=== PATIENT | male | born 1965 | race Caucasian/White ===

== ENCOUNTER → 2016-09-05 | Outpatient (CLI) | payer BC ==
[~2016-09-05] MED LIST: ACTOPLUS MET 501 TAB PO; BYDUREON P2 MG/0.65 SQ; CLEOCIN HCL150 M1 PO; EFFIENT10 MG PO; INVOKANA100 MG PO; LIPITOR 40MG TA40 MG PO; VIBRAMYCIN HYC100 MG PO
== END ==
LOC: LAB 07:53
DX: E11.65 Type 2 diabetes mellitus with hyperglycemia (principal); Z79.4 Long term (current) use of insulin

== ENCOUNTER → 2016-12-09 | Outpatient (CLI) | payer BC ==
[2015-05-06 21:19] VITALS: BP 133/96
== END ==
LOC: LAB 07:39
DX: E11.59 Type 2 diabetes mellitus with other circulatory complications (principal)

== ENCOUNTER → 2017-03-16 | Outpatient (CLI) | payer BC ==
[2015-05-06 21:19] VITALS: BP 133/96
== END ==
LOC: LAB 14:06
DX: E11.59 Type 2 diabetes mellitus with other circulatory complications (principal)

== ENCOUNTER → 2017-03-17 | Outpatient (CLI) | payer BC ==
[2015-05-06 21:19] VITALS: BP 133/96
== END ==
LOC: LAB 11:07
DX: E11.59 Type 2 diabetes mellitus with other circulatory complications (principal)

== ENCOUNTER → 2017-05-15 | Outpatient (CLI) | payer BC ==
[2015-05-06 21:19] VITALS: BP 133/96
== END ==
LOC: LAB 08:13
DX: Z00.00 Encounter for general adult medical examination without abnormal findings (principal); Z12.5 Encounter for screening for malignant neoplasm of prostate

== ENCOUNTER → 2017-06-23 | Outpatient (CLI) | payer BC ==
[2015-05-06 21:19] VITALS: BP 133/96
[2017-06-23 23:58] LABS: FOLLICLE STIMULATING HORMONE 20.9 mIU/mL (1.0-12.0); LUTENIZING HORMONE 12.7 mIU/mL (0.6-12.1)
== END ==
LOC: LAB 11:23
PROVIDERS: Physician Assistant
DX: E23.0 Hypopituitarism (principal)

== ENCOUNTER → 2017-09-18 | Outpatient (CLI) | payer BC ==
[2015-05-06 21:19] VITALS: BP 133/96
== END ==
LOC: LAB 08:31
DX: E11.9 Type 2 diabetes mellitus without complications (principal); Z88.0 Allergy status to penicillin

== ENCOUNTER → 2017-12-21 | Outpatient (CLI) | payer BC ==
[2015-05-06 21:19] VITALS: BP 133/96
[2017-12-21 07:48] LABS: BUN/CREATININE RATIO 17.8 (6.0-26.0); CALCIUM 8.7 mg/dL (8.4-10.2); POTASSIUM 4.2 mmol/L (3.6-5.0); TOTAL BILIRUBIN 0.3 mg/dL (0.2-1.3); TOTAL PROTEIN 7.4 g/dL (6.3-8.2)
[2017-12-21 14:58] LABS: CREATININE OTHER SOURCE 74 mg/dL (())
== END ==
LOC: LAB 06:51
PROVIDERS: Physician Assistant
DX: E11.65 Type 2 diabetes mellitus with hyperglycemia (principal); E11.59 Type 2 diabetes mellitus with other circulatory complications; E78.01 Familial hypercholesterolemia

== ENCOUNTER 2018-07-16 17:58 | Emergency (ER) | payer BC ==
[~2018-07-16] VITALS: Ht 165.1 cm; Wt 82.7 kg
[~2018-07-16 17:58] MED LIST changes: -CLOPIDOGREL PO; -GLUCOPHAGE PO; -INVOKANA300 MG PO; -LIPITOR 10M10 MG/TAB PO
[2018-07-16 18:38] LABS: EOS # 0.3 (0.04-0.40); EOS % 2.9 % (0.0-4.0); HEMATOCRIT 46.9 % (42.0-52.0); LYMPH# 2.1 (1.50-4.00); MEAN CELL VOLUME 92 fl (78-100); MEAN CORPUSCULAR HEMOGLOBIN 31 pg (27-31); MEAN CORPUSCULAR HGB CONC 34 g/dL (33-37); MEAN PLATELET VOLUME 9.6 fl (7.4-10.4); MONO # 0.9 (0.20-0.80); NEU # 5.2 (1.40-6.50); PLATELET COUNT 268 K/mm3 (130-400); RED BLOOD COUNT 5.09 M/mm3 (4.20-5.60); WHITE BLOOD COUNT 8.5 K/mm3 (4.8-10.8)
[2018-07-16] MEDS ORDERED: INVOKANA300 MG PO (18:38)
[2018-07-16] MEDS ORDERED: GLUCOPHAGE PO (18:39)
[2018-07-16] MEDS ORDERED: LIPITOR 10M10 MG/TAB PO (18:40)
[2018-07-16 18:52] LABS: ALBUMIN 4.5 g/dL (3.5-5.0); CALCIUM 9.5 mg/dL (8.4-10.2); POTASSIUM 4.3 mmol/L (3.6-5.0); TOTAL BILIRUBIN 0.5 mg/dL (0.2-1.3); TOTAL PROTEIN 7.4 g/dL (6.3-8.2)
[2018-07-16 19:14] LABS: URINE APPEARANCE CLEAR; URINE BILIRUBIN NEGATIVE (NEGATIVE); URINE BLOOD NEGATIVE (NEGATIVE); URINE COLOR YELLOW; URINE KETONE NEGATIVE (NEGATIVE); URINE LEUKOCYTE ESTERASE NEGATIVE (NEGATIVE); URINE NITRATE NEGATIVE (NEGATIVE); URINE PROTEIN(semi-quant) NEGATIVE (NEGATIVE); URINE UROBILINOGEN NORMAL (NORMAL); URINE WBC 0-1 /hpf (0-3)
[2018-07-16] MEDS ORDERED: COZAAR25 M1 PO (20:07)
[2018-07-16] MEDS ORDERED: CLOPIDOGREL PO (20:07)
[2018-07-16 20:22] VITALS: BP 131/83
== END 2018-07-16 20:25 | disposition home or self-care (01) ==
LOC: ED 17:58
PROVIDERS: Family Medicine
DX: R07.89 Other chest pain (principal); I25.118 Atherosclerotic heart disease of native coronary artery with other forms of angina pectoris; I10 Essential (primary) hypertension; E11.9 Type 2 diabetes mellitus without complications; Z79.84 Long term (current) use of oral hypoglycemic drugs; Z79.02 Long term (current) use of antithrombotics/antiplatelets; E78.5 Hyperlipidemia, unspecified; Z95.5 Presence of coronary angioplasty implant and graft; G47.30 Sleep apnea, unspecified; Z91.14 Patient's other noncompliance with medication regimen; Z79.899 Other long term (current) drug therapy

== ENCOUNTER → 2018-07-16 | Outpatient (CLI) | payer BC ==
[~2018-07-16] VITALS: Ht 165.1 cm; Wt 82.8 kg
[~2018-07-16] MED LIST changes: +CLOPIDOGREL PO; +COZAAR25 M1 PO; +GLUCOPHAGE PO; +INVOKANA300 MG PO; +LIPITOR 10M10 MG/TAB PO; +PIOGLITAZONE HY PO; +TRULICITY0.75 MG/0. SC
[2018-07-16 11:30] VITALS: BP 142/91
[2018-07-16 11:46] LABS: EOS # 0.2 (0.04-0.40); EOS % 2.1 % (0.0-4.0); HEMATOCRIT 48.5 % (42.0-52.0); HEMOGLOBIN 16.4 g/dL (13.5-18.0); LYMPH# 1.9 (1.50-4.00); MEAN CELL VOLUME 92 fl (78-100); MEAN CORPUSCULAR HEMOGLOBIN 31 pg (27-31); MEAN CORPUSCULAR HGB CONC 34 g/dL (33-37); MEAN PLATELET VOLUME 9.3 fl (7.4-10.4); MONO # 0.9 (0.20-0.80); NEU # 5.4 (1.40-6.50); PLATELET COUNT 272 K/mm3 (130-400); RED BLOOD COUNT 5.29 M/mm3 (4.20-5.60); RED CELL DISTRIBUTION WIDTH 12.7 % (11.5-14.5); WHITE BLOOD COUNT 8.4 K/mm3 (4.8-10.8)
[2018-07-16 12:06] LABS: ALBUMIN 4.7 g/dL (3.5-5.0); CALCIUM 9.6 mg/dL (8.4-10.2); POTASSIUM 4.9 mmol/L (3.6-5.0); TOTAL BILIRUBIN 0.8 mg/dL (0.2-1.3); TOTAL PROTEIN 7.8 g/dL (6.3-8.2)
[2018-07-16 12:41] LABS: URINE APPEARANCE CLEAR; URINE COLOR YELLOW
[2018-07-16 12:42] LABS: URINE BILIRUBIN NEGATIVE (NEGATIVE); URINE BLOOD NEGATIVE (NEGATIVE); URINE KETONE NEGATIVE (NEGATIVE); URINE LEUKOCYTE ESTERASE NEGATIVE (NEGATIVE); URINE NITRATE NEGATIVE (NEGATIVE); URINE PROTEIN(semi-quant) TRACE mg/dL (NEGATIVE); URINE UROBILINOGEN NORMAL (NORMAL); URINE WBC 0-1 /hpf (0-3)
[2018-07-16 14:44] LABS: ERYTHROCYTE SEDIMENTATION RATE 2 mm/hr (0-20)
== END ==
LOC: LAB 11:11 → RAD 11:11
PROVIDERS: Internal Medicine
DX: Z01.818 Encounter for other preprocedural examination (principal); R06.02 Shortness of breath; I25.10 Atherosclerotic heart disease of native coronary artery without angina pectoris; R07.89 Other chest pain; Z12.5 Encounter for screening for malignant neoplasm of prostate; Z00.00 Encounter for general adult medical examination without abnormal findings; E11.9 Type 2 diabetes mellitus without complications

== ENCOUNTER → 2018-07-19 | Outpatient (CLI) | payer BC ==
[2018-07-16 20:22] VITALS: BP 131/83
[~2018-07-19] MED LIST changes: +CLOPIDOGREL PO; +GLUCOPHAGE PO; +INVOKANA300 MG PO; +LIPITOR 10M10 MG/TAB PO
== END ==
LOC: CARDREHAB 11:10 → CARDLAB 16:15
DX: R94.39 Abnormal result of other cardiovascular function study (principal); R07.9 Chest pain, unspecified

== ENCOUNTER 2018-08-11 12:48 | Outpatient (RCR) | payer BC | END 2018-11-09 | disposition still patient (30) | LOC: CARDREHAB | DX: Z48.812 Encounter for surgical aftercare following surgery on the circulatory system (principal); Z95.1 Presence of aortocoronary bypass graft ==

== ENCOUNTER → 2018-10-30 | Outpatient (CLI) | payer BC | LOC: LAB 11:06 | DX: E11.59 Type 2 diabetes mellitus with other circulatory complications (principal) ==

== ENCOUNTER 2019-01-07 22:24 | Emergency (ER) | payer BC ==
[~2019-01-07] VITALS: Ht 165.1 cm; Wt 77.3 kg
[2019-01-07] MEDS ORDERED: METFORMIN ER500 MG (22:48)
[2019-01-07] MEDS ORDERED: LIPITOR 10M10 MG/TAB (22:48)
[2019-01-07] MEDS ORDERED: AMARYL1 M1 (22:48)
[2019-01-07] MEDS ORDERED: INVOKANA100 MG (22:48)
[2019-01-07] MEDS ORDERED: TOPROL XL 25MG25 MG (22:48)
[2019-01-07] MEDS ORDERED: NITROSTAT0.3 MG SL (22:49)
[2019-01-07] MEDS ORDERED: TRULICITY0.75 MG/0. (22:49)
[2019-01-07] MEDS ORDERED: ASPIRIN 81M81 MG/TA2 PO (22:49)
[2019-01-07 23:03] LABS: EOS # 0.3 (0.04-0.40); EOS % 3.6 % (0.0-4.0); HEMATOCRIT 43.4 % (42.0-52.0); HEMOGLOBIN 14.4 g/dL (13.5-18.0); LYMPH# 2.9 (1.50-4.00); MEAN CELL VOLUME 90 fl (78-100); MEAN CORPUSCULAR HEMOGLOBIN 30 pg (27-31); MEAN CORPUSCULAR HGB CONC 33 g/dL (33-37); MEAN PLATELET VOLUME 9.3 fl (7.4-10.4); NEU # 4.3 (1.40-6.50); PLATELET COUNT 271 K/mm3 (130-400); RED BLOOD COUNT 4.85 M/mm3 (4.20-5.60); RED CELL DISTRIBUTION WIDTH 14.4 % (11.5-14.5); WHITE BLOOD COUNT 8.6 K/mm3 (4.8-10.8)
[2019-01-07 23:20] LABS: ALBUMIN 3.9 g/dL (3.5-5.0); CALCIUM 9.1 mg/dL (8.3-10.5); POTASSIUM 4.1 mmol/L (3.5-5.1); TOTAL BILIRUBIN 0.4 mg/dL (0.2-1.2); TOTAL PROTEIN 6.7 g/dL (6.4-8.3)
[2019-01-07 23:50] LABS: PARTIAL THROMBOPLASTIN TIME 23.7 SECONDS (21.0-32.0); PROTHROMBIN TIME 9.5 SECONDS (9.0-12.0)
[2019-01-07 23:52] LABS: URINE APPEARANCE CLEAR; URINE BILIRUBIN NEGATIVE (NEGATIVE); URINE COLOR YELLOW; URINE KETONE NEGATIVE (NEGATIVE); URINE NITRATE NEGATIVE (NEGATIVE); URINE PROTEIN(semi-quant) NEGATIVE (NEGATIVE); URINE UROBILINOGEN NORMAL (NORMAL)
[2019-01-07 23:53] LABS: URINE BLOOD NEGATIVE (NEGATIVE); URINE LEUKOCYTE ESTERASE NEGATIVE (NEGATIVE); URINE WBC 0-1 /hpf (0-3)
[2019-01-08 05:32] LABS: CALCIUM 8.5 mg/dL (8.3-10.5); CARBON DIOXIDE 20 mmol/L (22-29); GLUCOSE 102 mg/dL (75-110); POTASSIUM 4.1 mmol/L (3.5-5.1); SODIUM 140 mmol/L (136-145)
[2019-01-08 05:35] LABS: TROPONIN-I < 0.03 ng/mL (<0.030)
[2019-01-08 05:43] VITALS: BP 132/80
== END 2019-01-08 05:43 | disposition home or self-care (01) ==
LOC: ED 22:24
PROVIDERS: Nurse Practitioner
DX: R07.9 Chest pain, unspecified (principal); E11.9 Type 2 diabetes mellitus without complications; I25.2 Old myocardial infarction; E78.5 Hyperlipidemia, unspecified; I25.10 Atherosclerotic heart disease of native coronary artery without angina pectoris; I10 Essential (primary) hypertension; Z79.84 Long term (current) use of oral hypoglycemic drugs; Z98.890 Other specified postprocedural states; Z88.0 Allergy status to penicillin; Z79.82 Long term (current) use of aspirin
CPT/HCPCS: J7030

== ENCOUNTER → 2019-02-14 | Outpatient (CLI) | payer BC ==
[~2019-02-14] MED LIST changes: +AMARYL1 M1; +ASPIRIN 81M81 MG/TA2 PO; +INVOKANA100 MG; +LIPITOR 10M10 MG/TAB; +METFORMIN ER500 MG; +NITROSTAT0.3 MG SL; +TOPROL XL 25MG25 MG; +TRULICITY0.75 MG/0.
[2019-02-14 18:21] LABS: ALBUMIN 4.1 g/dL (3.5-5.0); POTASSIUM 4.2 mmol/L (3.5-5.1)
[2019-02-14 18:22] LABS: CALCIUM 9.4 mg/dL (8.3-10.5)
[2019-02-14 18:23] LABS: TOTAL PROTEIN 7.2 g/dL (6.4-8.3)
[2019-02-14 18:25] LABS: TOTAL BILIRUBIN 0.5 mg/dL (0.2-1.2)
== END ==
LOC: LAB 16:09
PROVIDERS: Physician Assistant
DX: I25.10 Atherosclerotic heart disease of native coronary artery without angina pectoris (principal); E11.59 Type 2 diabetes mellitus with other circulatory complications

== ENCOUNTER → 2019-09-09 | Outpatient (CLI) | payer BC ==
[2019-09-09 14:24] LABS: EOS # 0.2 (0.04-0.40); EOS % 3.1 % (0.0-4.0); HEMATOCRIT 46.4 % (42.0-52.0); HEMOGLOBIN 15.7 g/dL (13.5-18.0); MEAN CELL VOLUME 90 fl (78-100); MEAN CORPUSCULAR HEMOGLOBIN 30 pg (27-31); MEAN CORPUSCULAR HGB CONC 34 g/dL (33-37); MEAN PLATELET VOLUME 9.1 fl (7.4-10.4); MONO # 0.9 (0.20-0.80); NEU # 4.6 (1.40-6.50); PLATELET COUNT 275 K/mm3 (130-400); RED BLOOD COUNT 5.16 M/mm3 (4.20-5.60); RED CELL DISTRIBUTION WIDTH 12.8 % (11.5-14.5); WHITE BLOOD COUNT 7.8 K/mm3 (4.8-10.8)
[2019-09-09 14:30] LABS: ALBUMIN 4.4 g/dL (3.5-5.0); POTASSIUM 4.2 mmol/L (3.5-5.1)
[2019-09-09 14:31] LABS: CALCIUM 9.5 mg/dL (8.3-10.5)
[2019-09-09 14:33] LABS: TOTAL PROTEIN 7.6 g/dL (6.4-8.3)
[2019-09-09 14:34] LABS: TOTAL BILIRUBIN 0.3 mg/dL (0.2-1.2)
[2019-09-09 14:39] LABS: MAGNESIUM 1.95 mg/dL (1.60-2.60)
[2019-09-09 15:01] LABS: URINE APPEARANCE CLEAR; URINE BILIRUBIN NEGATIVE (NEGATIVE); URINE BLOOD NEGATIVE (NEGATIVE); URINE COLOR YELLOW; URINE KETONE NEGATIVE (NEGATIVE); URINE LEUKOCYTE ESTERASE NEGATIVE (NEGATIVE); URINE NITRATE NEGATIVE (NEGATIVE); URINE PROTEIN(semi-quant) TRACE mg/dL (NEGATIVE); URINE UROBILINOGEN NORMAL (NORMAL); URINE WBC 0-1 /hpf (0-3)
[2019-09-09 15:02] LABS: URINE MUCUS PRESENT (NOT PRESENT)
[2019-09-09 15:21] LABS: ERYTHROCYTE SEDIMENTATION RATE 2 mm/hr (0-20)
[2019-09-09 22:36] LABS: TESTOSTERONE 338 ng/dL (221-716)
== END ==
LOC: LAB 14:10
PROVIDERS: Internal Medicine
DX: Z00.00 Encounter for general adult medical examination without abnormal findings (principal); Z12.5 Encounter for screening for malignant neoplasm of prostate; Z12.11 Encounter for screening for malignant neoplasm of colon

== ENCOUNTER → 2019-11-29 | Outpatient (CLI) | payer BC | LOC: RAD 06:55 | DX: S43.431A Superior glenoid labrum lesion of right shoulder, initial encounter (principal); M16.11 Unilateral primary osteoarthritis, right hip; M24.851 Other specific joint derangements of right hip, not elsewhere classified; Z91.81 History of falling ==

== ENCOUNTER → 2019-12-12 | Outpatient (CLI) | payer BC ==
[2019-12-12 12:31] LABS: ALBUMIN 4.1 g/dL (3.5-5.0)
[2019-12-12 12:32] LABS: POTASSIUM 4.4 mmol/L (3.5-5.1)
[2019-12-12 12:33] LABS: CALCIUM 8.9 mg/dL (8.3-10.5)
[2019-12-12 12:34] LABS: TOTAL PROTEIN 7.1 g/dL (6.4-8.3)
[2019-12-12 12:36] LABS: TOTAL BILIRUBIN 0.7 mg/dL (0.2-1.2)
== END ==
LOC: LAB 11:59
DX: E11.65 Type 2 diabetes mellitus with hyperglycemia (principal); E11.59 Type 2 diabetes mellitus with other circulatory complications; E78.5 Hyperlipidemia, unspecified

== ENCOUNTER → 2020-03-13 | Outpatient (CLI) | payer BC ==
[2020-03-13 17:07] LABS: ALBUMIN 4.3 g/dL (3.5-5.0)
[2020-03-13 17:08] LABS: POTASSIUM 4.2 mmol/L (3.5-5.1)
[2020-03-13 17:09] LABS: CALCIUM 9.5 mg/dL (8.3-10.5)
[2020-03-14 17:04] LABS: CREATININE OTHER SOURCE 74 mg/dL (())
== END ==
LOC: LAB 16:25
DX: E11.9 Type 2 diabetes mellitus without complications (principal); E78.5 Hyperlipidemia, unspecified

== ENCOUNTER → 2020-11-22 | Outpatient (CLI) | payer BC ==
[2020-11-22 17:00] LABS: BASO # 0.1 (0.02-0.10); EOS # 0.3 (0.04-0.40); EOS % 3.3 % (0.0-4.0); HEMOGLOBIN 15.8 g/dL (13.5-18.0); LYMPH# 2.1 (1.50-4.00); MEAN CELL VOLUME 92 fl (78-100); MEAN CORPUSCULAR HEMOGLOBIN 30 pg (27-31); MEAN CORPUSCULAR HGB CONC 33 g/dL (33-37); MEAN PLATELET VOLUME 9.2 fl (7.4-10.4); MONO # 0.9 (0.20-0.80); NEU # 4.5 (1.40-6.50); PLATELET COUNT 287 K/mm3 (130-400); RED BLOOD COUNT 5.22 M/mm3 (4.20-5.60); WHITE BLOOD COUNT 7.8 K/mm3 (4.8-10.8)
[2020-11-22 17:19] LABS: ALBUMIN 4.4 g/dL (3.5-5.0); POTASSIUM 4.6 mmol/L (3.5-5.1)
[2020-11-22 17:20] LABS: CALCIUM 9.6 mg/dL (8.3-10.5); URINE APPEARANCE CLEAR; URINE COLOR YELLOW; URINE PROTEIN(semi-quant) NEGATIVE (NEGATIVE)
[2020-11-22 17:21] LABS: TOTAL PROTEIN 7.8 g/dL (6.4-8.3); URINE BILIRUBIN NEGATIVE (NEGATIVE); URINE BLOOD NEGATIVE (NEGATIVE); URINE KETONE NEGATIVE (NEGATIVE); URINE LEUKOCYTE ESTERASE NEGATIVE (NEGATIVE); URINE NITRATE NEGATIVE (NEGATIVE); URINE UROBILINOGEN NORMAL (NORMAL); URINE WBC 0-1 /hpf (0-3)
[2020-11-22 17:23] LABS: TOTAL BILIRUBIN 0.4 mg/dL (0.2-1.2)
[2020-11-22 17:28] LABS: MAGNESIUM 2.4 mg/dL (1.60-2.60)
[2020-11-22 17:29] LABS: PROTHROMBIN TIME 9.5 SECONDS (9.0-12.0)
== END ==
LOC: RAD 16:39
PROVIDERS: Internal Medicine
DX: Z01.818 Encounter for other preprocedural examination (principal); Z95.1 Presence of aortocoronary bypass graft

== ENCOUNTER 2021-05-09 09:06 | Outpatient (RCR) | payer BC | END 2021-07-17 17:00 | disposition home or self-care (01) | LOC: PT 09:06 | DX: Z96.652 Presence of left artificial knee joint (principal) ==

== ENCOUNTER → 2021-06-25 | Outpatient (CLI) | payer BC ==
[2021-06-25 11:33] LABS: ALBUMIN 4.4 g/dL (3.5-5.0)
[2021-06-25 11:34] LABS: POTASSIUM 4.3 mmol/L (3.5-5.1)
[2021-06-25 11:35] LABS: CALCIUM 9.7 mg/dL (8.3-10.5)
== END ==
LOC: LAB 10:57
DX: E11.65 Type 2 diabetes mellitus with hyperglycemia (principal)

== ENCOUNTER → 2021-12-23 | Outpatient (CLI) | payer BC ==
[2021-12-23 18:47] LABS: ALBUMIN 4.1 g/dL (3.5-5.0)
[2021-12-23 18:48] LABS: POTASSIUM 4.1 mmol/L (3.5-5.1)
[2021-12-23 18:49] LABS: CALCIUM 9.4 mg/dL (8.3-10.5)
[2021-12-24 09:23] LABS: CREATININE OTHER SOURCE 45 mg/dL (())
== END ==
LOC: LAB 16:41
DX: E11.65 Type 2 diabetes mellitus with hyperglycemia (principal); E78.5 Hyperlipidemia, unspecified

== ENCOUNTER → 2022-03-24 | Outpatient (CLI) | payer BC ==
[2022-03-24 14:49] LABS: ALBUMIN 4.1 g/dL (3.5-5.0)
[2022-03-24 14:50] LABS: POTASSIUM 4.6 mmol/L (3.5-5.1)
[2022-03-24 14:51] LABS: CALCIUM 9.1 mg/dL (8.3-10.5)
[2022-03-24 14:52] LABS: TOTAL PROTEIN 7.1 g/dL (6.4-8.3)
[2022-03-24 14:54] LABS: TOTAL BILIRUBIN 0.6 mg/dL (0.2-1.2)
== END ==
LOC: LAB 14:22
PROVIDERS: Nurse Practitioner Gerontology
DX: E11.65 Type 2 diabetes mellitus with hyperglycemia (principal); E78.5 Hyperlipidemia, unspecified

== ENCOUNTER 2022-04-05 03:25 | Emergency (ER) | payer BC ==
[~2022-04-05] VITALS: Ht 165.1 cm; Wt 77.3 kg
[2022-04-05 03:53] LABS: HEMATOCRIT 46.8 % (42.0-52.0); HEMOGLOBIN 16.2 g/dL (13.5-18.0); MEAN CELL VOLUME 91 fl (78-100); MEAN CORPUSCULAR HEMOGLOBIN 32 pg (27-31); MEAN CORPUSCULAR HGB CONC 35 g/dL (33-37); MEAN PLATELET VOLUME 9.4 fl (7.4-10.4); PLATELET COUNT 242 K/mm3 (130-400); RED BLOOD COUNT 5.12 M/mm3 (4.20-5.60); RED CELL DISTRIBUTION WIDTH 12.2 % (11.5-14.5); WHITE BLOOD COUNT 8.9 K/mm3 (4.8-10.8)
[2022-04-05 04:07] LABS: ALBUMIN 4.4 g/dL (3.5-5.0); POTASSIUM 4.3 mmol/L (3.5-5.1)
[2022-04-05 04:08] LABS: CALCIUM 9.4 mg/dL (8.3-10.5)
[2022-04-05 04:09] LABS: TOTAL PROTEIN 7.6 g/dL (6.4-8.3)
[2022-04-05 04:27] LABS: LYMPHOCYTE 7 % (20-51); MONOCYTE 12 % (3-10); NEUTROPHILS 79 % (42-75)
[2022-04-05 04:28] LABS: D-DIMER 0.38 mg/L FEU (0.15-0.50)
[2022-04-05] MEDS ORDERED: ZOFRAN ODT4 MG PO (07:58)
[2022-04-05 08:15] VITALS: BP 132/86
== END 2022-04-05 08:20 | disposition home or self-care (01) ==
LOC: ED 03:25
PROVIDERS: Family Medicine
DX: U07.1 COVID-19 (principal); E11.9 Type 2 diabetes mellitus without complications

== ENCOUNTER → 2023-04-22 | Outpatient (CLI) | payer BC ==
[~2023-04-22] MED LIST changes: +ZOFRAN ODT4 MG PO
[2023-04-22 06:51] LABS: POTASSIUM 4.5 mmol/L (3.5-5.1)
[2023-04-22 06:52] LABS: ALBUMIN 3.8 g/dL (3.5-5.0)
[2023-04-22 06:53] LABS: CALCIUM 9.9 mg/dL (8.3-10.5)
[2023-04-22 06:54] LABS: TOTAL PROTEIN 6.8 g/dL (6.4-8.3)
[2023-04-22 06:56] LABS: TOTAL BILIRUBIN 0.5 mg/dL (0.2-1.2)
== END ==
LOC: LAB 06:24
PROVIDERS: Nurse Practitioner Gerontology
DX: E11.65 Type 2 diabetes mellitus with hyperglycemia (principal); E78.5 Hyperlipidemia, unspecified

== ENCOUNTER → 2024-03-18 | Outpatient (CLI) | payer BC | LOC: LAB 08:09 | DX: E11.65 Type 2 diabetes mellitus with hyperglycemia (principal); E78.5 Hyperlipidemia, unspecified ==

== ENCOUNTER → 2024-05-19 | Outpatient (CLI) | payer BC ==
[2024-05-19 08:06] LABS: BASO # 0.05 K/mm3 (0.02-0.10); EOS # 0.18 K/mm3 (0.04-0.40); EOS % 2.7 % (0.0-4.0); HEMATOCRIT 45.3 % (42.0-52.0); HEMOGLOBIN 15.3 g/dL (13.5-18.0); LYMPH# 1.73 K/mm3 (1.50-4.00); MEAN CELL VOLUME 92 fl (78-100); MEAN CORPUSCULAR HEMOGLOBIN 31 pg (27-31); MEAN CORPUSCULAR HGB CONC 34 g/dL (33-37); MEAN PLATELET VOLUME 9.2 fl (7.4-10.4); NEU # 3.98 K/mm3 (1.40-6.50); PLATELET COUNT 257 K/mm3 (130-400); RED CELL DISTRIBUTION WIDTH 12.7 % (11.5-14.5); WHITE BLOOD COUNT 6.7 K/mm3 (4.8-10.8)
[2024-05-19 08:14] LABS: ALBUMIN 4.2 g/dL (3.5-5.0)
[2024-05-19 08:15] LABS: CALCIUM 9.2 mg/dL (8.3-10.5)
[2024-05-19 08:17] LABS: TOTAL PROTEIN 7.3 g/dL (6.4-8.3)
[2024-05-19 08:19] LABS: TOTAL BILIRUBIN 0.7 mg/dL (0.2-1.2)
[2024-05-19 22:40] LABS: FOLLICLE STIMULATING HORMONE 27.9 mIU/mL (1.0-12.0); PROLACTIN AMS 5.6 ng/mL (3.5-19.4)
[2024-05-19 23:27] LABS: CREATININE OTHER SOURCE 72 mg/dL (47-110)
== END ==
LOC: LAB 07:51
PROVIDERS: Nurse Practitioner Gerontology
DX: E11.65 Type 2 diabetes mellitus with hyperglycemia (principal); E78.5 Hyperlipidemia, unspecified

== ENCOUNTER → 2024-09-17 | Outpatient (CLI) | payer BC ==
[2024-09-17 08:19] LABS: HEMATOCRIT 51.1 % (42.0-52.0); HEMOGLOBIN 17.1 g/dL (13.5-18.0)
[2024-09-17 08:32] LABS: ALBUMIN 4.1 g/dL (3.5-5.0)
[2024-09-17 08:33] LABS: CALCIUM 9.4 mg/dL (8.3-10.5)
[2024-09-17 08:34] LABS: TOTAL PROTEIN 7.8 g/dL (6.4-8.3)
[2024-09-17 08:36] LABS: TOTAL BILIRUBIN 0.7 mg/dL (0.2-1.2)
== END ==
LOC: LAB 08:02
DX: R79.89 Other specified abnormal findings of blood chemistry (principal); E11.65 Type 2 diabetes mellitus with hyperglycemia; E78.5 Hyperlipidemia, unspecified